=== PATIENT | male | born 1980 | race Caucasian/White ===

== ENCOUNTER 2017-03-20 22:49 | Emergency (ER) | payer OTHER ==
[~2017-03-20] VITALS: Ht 190.5 cm; Wt 119.3 kg
[~2017-03-20 22:49] MED LIST: DILAUDID2 MG PO; ERYTHROMYC1 APPLICAT RIGHT EYE; KEFLEX500 MG PO; MEDROL DOSEPAK4 MG PO; METHADONE10 MG PO; NOHOMEMEDS; PEN-VEE K,VEET500 MG PO; PERCOCET 5/31 TABLET PO; VICODIN 5-3001 EACH PO
[2017-03-21] MEDS ORDERED: INDOCIN25 MG PO (00:03)
[2017-03-21 00:23] VITALS: BP 155/97
== END 2017-03-21 00:24 | disposition home or self-care (01) ==
LOC: EME 22:49
PROC: 2W3CX1Z Immobilization of Right Lower Arm using Splint (ICD-10-PCS; principal; 2017-03-20)
DX: S62.396A Other fracture of fifth metacarpal bone, right hand, initial encounter for closed fracture (principal); W22.8XXA Striking against or struck by other objects, initial encounter; F17.200 Nicotine dependence, unspecified, uncomplicated
CPT/HCPCS: 73130; 99281; 99284

== ENCOUNTER 2017-10-16 07:00 | Emergency (ER) | payer SELFPAY ==
[~2017-10-16] VITALS: Ht 190.5 cm; Wt 126.6 kg
[~2017-10-16 07:00] MED LIST changes: +INDOCIN25 MG PO
[2017-10-16] MEDS ORDERED: KEFLEX500 MG PO (09:03)
[2017-10-16] MEDS ORDERED: MOTRIN600 MG PO (09:03)
[2017-10-16 09:25] VITALS: BP 128/68
== END 2017-10-16 09:27 | disposition home or self-care (01) ==
LOC: EME 07:00
DX: L03.114 Cellulitis of left upper limb (principal); S69.92XA Unspecified injury of left wrist, hand and finger(s), initial encounter; F17.200 Nicotine dependence, unspecified, uncomplicated; Z88.5 Allergy status to narcotic agent
CPT/HCPCS: 73110; 99281; 99284

== ENCOUNTER 2017-11-20 18:47 | Emergency (ER) | payer OTHER ==
[~2017-11-20] VITALS: Ht 190.5 cm; Wt 124.5 kg
[~2017-11-20 18:47] MED LIST changes: +MOTRIN600 MG PO
[2017-11-20] MEDS ORDERED: PERCOCET 5/31 TABLET PO (20:23)
[2017-11-20] MEDS ORDERED: KEFLEX500 MG PO (20:23)
[2017-11-20 20:50] VITALS: BP 154/101
== END 2017-11-20 20:51 | disposition home or self-care (01) ==
LOC: EME 18:47
PROC: 2W3EX1Z Immobilization of Right Hand using Splint (ICD-10-PCS; principal; 2017-11-20)
DX: S62.306A Unspecified fracture of fifth metacarpal bone, right hand, initial encounter for closed fracture (principal); W22.01XA Walked into wall, initial encounter; Z88.5 Allergy status to narcotic agent
CPT/HCPCS: 73130; 99281; 99284

== ENCOUNTER 2017-11-23 01:48 | Emergency (ER) | payer OTHER ==
[~2017-11-23] VITALS: Ht 190.5 cm; Wt 123.4 kg
[2017-11-23 01:53] VITALS: BP 126/71
[2017-11-23] MEDS ORDERED: CLINDAMYCIN HC150 MG PO (06:37)
== END 2017-11-23 06:55 | disposition home or self-care (01) ==
LOC: EME 01:48
DX: L03.113 Cellulitis of right upper limb (principal); Z88.5 Allergy status to narcotic agent
CPT/HCPCS: 73200; 99281; 99283